=== PATIENT | female | born 1995 | race Caucasian/White ===

== ENCOUNTER 2024-03-02 19:33 | Emergency (ER) | payer SELFPAY ==
[~2024-03-02] VITALS: Ht 154.9 cm; Wt 64.9 kg
[2024-03-02 19:47] VITALS: BP 113/72; PULSE 72; RESP 18; TEMP 98.4; O2SAT 99
[2024-03-02 20:33] LABS: APPEARANCE,URINE CLEAR (CLEAR); BILIRUBIN,URINE NEGATIVE (NEGATIVE); BLOOD, URINE NEGATIVE (NEGATIVE); COLOR,URINE YELLOW (YELLOW); LEUKOCYTE ESTERASE ,URINE 3+ (NEGATIVE); NITRITE, URINE NEGATIVE (NEGATIVE); PH,URINE 6.5 (5.0-9.0); PROTEIN,URINE NEGATIVE (NEGATIVE); UGLUCOSE NEGATIVE (NEGATIVE); UROBILINOGEN,URINE 0.2 EU/dL (0.2 - 1)
[2024-03-02] MEDS: ACETAMINOPHEN EXTRA STRENGTH 500 MG TAB PO ONE (20:36)
[2024-03-02 20:37] LABS: RBC,URINE 0-5 /HPF (0-5); WBC,URINE >25 (MANY) /HPF (0-5)
[2024-03-02 20:38] LABS: BACTERIA,URINE None Seen /HPF (None Seen); MUCUS,URINE None Seen /LPF (None Seen); SQUAMOUS EPITHELIAL CELL,UR >10 (MANY) /LPF (0-3 (FEW)); YEAST,URINE Few /HPF (None Seen)
[2024-03-02 21:30] VITALS: BP 116/72; PULSE 74; RESP 18; TEMP 97.8; O2SAT 99
[2024-03-02] MEDS ORDERED: DOXY1TCP PO (21:31)
[2024-03-02] MEDS ORDERED: ACET-10509 PO (21:31)
[2024-03-02] MEDS ORDERED: CEPH-588 PO (21:31)
== END 2024-03-02 21:46 | disposition home or self-care (01) ==
LOC: MED 19:33
DX: O23.41 Unspecified infection of urinary tract in pregnancy, first trimester (principal); N39.0 Urinary tract infection, site not specified; Z3A.01 Less than 8 weeks gestation of pregnancy; Z79.899 Other long term (current) drug therapy
CPT/HCPCS: 81001; 81025; 87086; 99283